=== PATIENT | female | born 1950 | race Caucasian/White ===

== ENCOUNTER 2021-07-06 08:48 | Day surgery (SDC) | payer MEDICAID ==
[~2021-07-06] VITALS: Ht 160 cm; Wt 83.0 kg
[2021-07-06] MEDS ORDERED: diphenhydrAMINE 50 MG/ML VIAL ONE (09:40)
[2021-07-06] MEDS ORDERED: fentaNYL citrate 0.05 MG/ML VIAL ONE (09:40)
[2021-07-06] MEDS ORDERED: MIDAZOLAM 5 MG/5 ML VIAL ONE (09:41)
== END 2021-07-06 11:00 | disposition home or self-care (01) ==
LOC: MDS 08:48 → MMU 08:48 → MDS 11:00
PROVIDERS: ATTEND Internal Medicine
DX: Z01.812 Encounter for preprocedural laboratory examination (principal); Z20.822 Contact with and (suspected) exposure to COVID-19
CPT/HCPCS: 87426; J2250; J3010; J1200